=== PATIENT | female | born 1985 ===

== ENCOUNTER 2018-09-30 22:12 | Emergency (ER) | payer MEDICAID, OTHER ==
[2018-09-30 22:12] VITALS: BMI 26.4
[2018-09-30] MEDS ORDERED: Albuterol-Ipratrop 3 mg / 0.5 (3 ml) UD IH STA (22:40)
--- NOTE | 2018-09-30 22:44 | ED PDOC ---
HPI: CCC, URI, Sore Throat Time Seen by Provider: 09/30/18 22:27 Chief Complaint (Nursing): Flu-like Symptoms Chief Complaint (Provider): cough, congestion History Per: Patient, Family History/Exam Limitations: no limitations Onset/Duration Of Symptoms: Days (1 week) Current Symptoms Are (Timing): Still Present Associated Symptoms: Cough, Sputum, Myalgias, Nasal Congestion Additional Complaint(s): 33 y/o female presents for evaluation of cough and congestion x 1 week. Associated tactile fevers, bodyaches. Patient has been taking Tylenol with little improvement. Denies headache, vomiting, chest pain, shortness of breath, abdominal pain, changes in bowel movements, recent travel, sick contacts. Past Medical History Reviewed: Historical Data, Nursing Documentation, Vital Signs Vital Signs: Last Vital Signs Temp 98.6 F 09/30/18 22:16 Pulse 100 H 09/30/18 22:16 Resp 16 09/30/18 22:16 BP 146/86 09/30/18 22:16 Pulse Ox 100 09/30/18 22:16 - Medical History PMH: No Chronic Diseases - Surgical History Surgical History: No Surg Hx - Family History Family History: States: Unknown Family Hx - Living Arrangements Living Arrangements: With Family - Home Medications Home Medications: Ambulatory Orders Medication Instructions Recorded Acetaminophen [Tylenol 325mg tab] 650 mg PO Q4H PRN 12/06/16 Albuterol HFA [Ventolin HFA 90 1 puff IH Q4 PRN #1 inh 10/01/18 mcg/actuation (8 g)] Fluticasone Nasal [Flonase] 1 actuation NS BID #1 bottle 10/01/18 Ibuprofen [Motrin Tab] 1 tab PO Q6 PRN #15 tab 10/01/18 Promethazine HCl/Codeine 5 ml PO Q8 PRN #50 ml 10/01/18 [Promethazine-Codeine Syrup] - Allergies Allergies/Adverse Reactions: Allergies Allergy/AdvReac Type Severity Reaction Status Date / Time No Known Allergies Allergy Verified 09/30/18 22:15 Review of Systems ROS Statement: Except As Marked, All Systems Reviewed And Found Negative ENT: Positive for: Nose Congestion Respiratory: Positive for: Cough Physical Exam - Reviewed Nursing Documentation Reviewed: Yes Vital Signs Reviewed: Yes - Physical Exam Appears: Positive for: Well, Non-toxic, No Acute Distress Head Exam: Positive for: ATRAUMATIC, NORMAL INSPECTION, NORMOCEPHALIC Skin: Positive for: Normal Color Eye Exam: Positive for: Normal appearance ENT: Positive for: Normal ENT Inspection Cardiovascular/Chest: Positive for: Regular Rate, Rhythm Respiratory: Positive for: Normal Breath Sounds Gastrointestinal/Abdominal: Positive for: Normal Exam Back: Positive for: Normal Inspection Extremity: Positive for: Normal ROM Neurologic/Psych: Positive for: Alert, Oriented (x3) - ECG O2 Sat by Pulse Oximetry: 100 - Progress ED Course And Treament: -influenza -cxr -ibuprofen -duoneb On re-eval, patient resting comfortably; states she is feeling better. Patient educated on findings, discharged with rx Albuterol HFA, Promethazine with codeine, flonase, ibuprofen Advised fluids, rest Follow up PMD within 2-3 days Return precautions given Disposition - Clinical Impression Clinical Impression: Viral illness - Patient ED Disposition Is Patient to be Admitted: No Counseled Patient/Family Regarding: Studies Performed, Diagnosis, Need For Followup, Rx Given - Disposition [facility]errals: [facility] [Outside] Disposition: Routine/Home Disposition Time: 02:48 Condition: IMPROVED Prescriptions: Albuterol HFA [Ventolin HFA 90 mcg/actuation (8 g)] 1 puff IH Q4 PRN #1 inh PRN Reason: Wheezing Fluticasone Nasal [Flonase] 1 actuation NS BID #1 bottle Ibuprofen [Motrin Tab] 1 tab PO Q6 PRN #15 tab PRN Reason: Pain, Moderate (4-7) Promethazine HCl/Codeine [Promethazine-Codeine Syrup] 5 ml PO Q8 PRN #50 ml PRN Reason: Cough Instructions: Viral Syndrome (DC) Print Language: PERSIAN
[2018-09-30] MEDS ORDERED: Albuterol-Ipratrop 3 mg / 0.5 (3 ml) UD ONE (22:47)
[2018-10-01 02:59] VITALS: BP 127/92; PULSE 80; RESP 18; TEMP 97.8; O2SAT 99
--- NOTE | 2018-10-01 09:47 | RAD ---
Date of service: 10/01/2018 HISTORY: cough COMPARISON: No prior. TECHNIQUE: Chest PA and lateral FINDINGS: LUNGS: No active pulmonary disease. PLEURA: No significant pleural effusion identified. No pneumothorax apparent. CARDIOVASCULAR: No aortic atherosclerotic calcification present. Normal cardiac size. No pulmonary vascular congestion. OSSEOUS STRUCTURES: No significant abnormalities. VISUALIZED UPPER ABDOMEN: Normal. OTHER FINDINGS: None. IMPRESSION: No active disease.
== END 2018-10-01 02:59 | disposition home or self-care (01) ==
LOC: H.ER 22:12
DX: B34.9 Viral infection, unspecified (principal)